=== PATIENT | male | born 1945 | race Caucasian/White ===

== ENCOUNTER 2019-07-16 09:42 | Day surgery (SDC) | payer MEDICARE ==
[~2019-07-16 09:42] MED LIST: ACETAMINOPHEN 325 MG TAB PO PRN; ACETAMINOPHEN 500 MG TABLET PO ONE; ACETAMINOPHEN W/ CODEINE 300MG/30MG TABLET PO PRN; ACETAMINOPHEN W/ CODEINE 300MG/60MG TABLET PO PRN; AL HYDROX/MAG HYDROX 30ML UD PO PRN; BISACODYL 10 MG SUPP RC PRN; CEFAZOLIN 2 Gram 2 GM/50 ML BAG IVPB ONE; CELECOXIB 100 MG CAPSULE PO ONE; DEXTROSE 5 % AND 0.9 % NACL 1,000 ML IV PRN; DIPHENHYDRAMINE HCL 25 MG CAPSULE PO PRN; FAMOTIDINE 20MG TABLET PO ONE; HYDROCODONE/APAP 5/325MG TABLET PO PRN; HYDROCODONE/APAP 7.5/325MG TABLET PO PRN; HYDROMORPHONE HCL 2 MG/ML VIAL IM PRN; KETOROLAC 30 MG/ML VIAL IVP PRN; MAGNESIUM HYDROXIDE 30 ML UDC PO PRN; METOCLOPRAMIDE 10 MG TABLET PO ONE; METOCLOPRAMIDE 10 MG TABLET PO PRN; NALOXONE 0.4 MG/1 ML VIAL IVP PRN; ONDANSETRON 4 MG ODT TABLET SL PRN; PROMETHAZINE HCL 25 MG TABLET PO PRN; SCOPOLAMINE 1 PATCH TDSY TD ONE; TRAMADOL HCL 50 MG TABLET PO PRN; VANCOMYCIN 1GM/200ML PREMIX 1 GM/200 ML PIGGYBACK IVPB ONE
[2019-07-16] MEDS ORDERED: LIDOCAINE 2% MDV (20MG/ML) 20ML VIAL IV ONE (09:43)
[2019-07-16] MEDS ORDERED: PROPOFOL 10 MG/ML VIAL IV ONE (09:43)
[2019-07-16] MEDS ORDERED: EPHEDRINE SULFATE 50 MG/ML ML IV ONE (09:43)
[2019-07-16] MEDS ORDERED: DEXAMETHASONE 4 MG/ML 1ML VIAL IVP ONE (09:43)
[2019-07-16] MEDS ORDERED: ROPIVACAINE HCL (NAROPIN) /PF 5MG/ML 20ML VIAL IV ONE (09:43)
[2019-07-16] MEDS ORDERED: MIDAZOLAM HCL 2MG/2ML VIAL IV ONE (09:43)
[2019-07-16] MEDS ORDERED: DOCUSATE SODIUM 100 MG CAPSULE PO SCH (10:00)
[2019-07-16] MEDS ORDERED: RINGERS SOLUTION,LACTATED 1,000 ML IV ONE ×2 (10:30→13:48)
[2019-07-16 10:44] LABS: ABO GROUP A; ANTIBODY SCREEN NEGATIVE (NEGATIVE); RH TYPE POSITIVE
[2019-07-16] MEDS ORDERED: BUPIVACAINE 0.5% W/EPI MPF 30 ML VIAL IU ONE (13:03)
[2019-07-16] MEDS ORDERED: TRANEXAMIC ACID 1,000 MG/10 ML ML IU ONE (13:04)
[2019-07-16] MEDS ORDERED: VANCOMYCIN HCL 1 GM VIAL IR ONE (13:04)
[2019-07-16] MEDS ORDERED: VANCOMYCIN HCL 1 GM VIAL IU ONE (13:04)
[2019-07-16] MEDS ORDERED: BUPIVACAINE LIPOSOME 266MG/20ML VIAL IU ONE (13:04)
[2019-07-16] MEDS ORDERED: TRANEXAMIC ACID 1,000 MG/10 ML ML IVPB ONE (13:04)
[2019-07-16] MEDS ORDERED: VANCOMYCIN 500MG/100ML PREMIX 500 MG/100 ML PIGGYBACK IVPB ONE (16:00)
--- NOTE | 2019-07-16 16:59 | Rehab Evaluation ---
Patient Information - Patient Information Diagnosis: L TKA Ordered Treatment: OT Evaluate and Treat Status: Initial Evaluation Surgery: Yes Date of Surgery: 07/16/19 Past Medical/Surgical Hx: PAST MEDICAL/SURGICAL HISTORY Past Surgical History HEART CATHS LAST ONE 07-05-19 DOUBLE HERNIA BILAT CATARACTS TONSILS LEFT SHOULDER SX CARDIAC STENT 2014 PMH - Respiratory Hx Respiratory Disorders Yes Hx Chronic Obstructive Yes: USES INHALER NEEDED NEW DX VERY RARE USE Pulmonary Disease (COPD) Hx Sleep Apnea Yes Hx of CPAP Yes: PT INSTRUCTED TO BRING TO THE HOSPITAL PMH - Cardiovascular Hx Cardiovascular Disorders Yes Hx Abnormal EKG Yes Hx Cardiac Catheterization Yes: 07-05-19 50-60 % OCCLUSION NO INTERVENTION AT THIS TIME Hx Chest Pain Yes: 07-05-19 HAD NEG CATH STRESS TEST ON CHART ? POSS GALLBLADDER Hx Hypertension Yes: CONTROLLED WITH MEDS Hx Coronary Artery Disease Yes Hx Coronary Stent Yes: X'S1 2014 Exercise Tolerance Fair PMH - Neuro Hx Neurological Disorders Yes Hx Dizziness Yes: OCCASS Hx Headaches Yes: OCCASS Hx Neuropathy Yes: FEET Comment: MILD MEMORY ISSUES ON MEDS. TREMORS NOTED HANDS PILL ROLLING? 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 He has a tub/shower combo with hand held shower head, and shower bench. There are no grab bars in shower. He has a raised toilet seat with grab bars and a 2WW. Daughter who is a medical asssistant will be staying with patient through Tuesday and then several other family members will be available after that time to assist with pt as needed.) Precautions: [place], Fall, Other (WBAT) - Time With Patient Total Time Spent With Patient (Min): 30 Treatment Procedures: Detail (OT eval low) Subjective Information - Subjective Information Per Patient Objective Data - Pain Pain Present: Yes Pain Intensity: 0 (L knee) Pain Scale Used: Numeric (1 - 10) - Mental Status Patient Orientation: Oriented x3 - Visual Perception Appears within normal limits for therapeutic activities - ROM Within normal limits (BUE's) - Strength/Tone Within normal limits (BUE's) - Coordination Appears within normal limits for therapeutic activities - Bed Mobility Independent - Transfers Independent (sit <> stand t/f) - Balance Balance Sitting: Good Balance Standing: Fair (using 2WW for support) - Gait Detail (refer to PT evaulation) - ADL's/IADL's Detail (Pt and pt's daughter educated on modified lower body drsg technique. They were also provided handout summarizing this technique as well as tips for moving around in the kitchen with a walker. Pt demonstrated understanding. Pt independent for shirt don, underpants and pant don, sock don, and shoe don with no issues and no increase in pain.) Therapy Assessment - Therapy Assessment Detail (Pt safe and independent with LB modified drsg techniques. He received handout reviewing information and will have assistance at home for the next several days if needed.) Patient Education - Patient Education Teaching Topic: Other (LB modified drsg technique) Response: Return Demonstration Teaching Method: Discussion Teaching Recipient: Patient, Family Barriers To Learning: None Prognosis - Prognosis Good Plan - Plan Occupational Therapy Plan: no further inpatient OT needed at this time.
--- NOTE | 2019-07-16 17:08 | Rehab Evaluation ---
Patient Information - Patient Information Diagnosis: L TKA Ordered Treatment: PT Evaluate and Treat Status: Initial Evaluation Surgery: Yes Date of Surgery: 07/16/19 Past Medical/Surgical Hx: PAST MEDICAL/SURGICAL HISTORY Past Surgical History HEART CATHS LAST ONE 07-05-19 DOUBLE HERNIA BILAT CATARACTS TONSILS LEFT SHOULDER SX CARDIAC STENT 2014 PMH - Respiratory Hx Respiratory Disorders Yes Hx Chronic Obstructive Yes: USES INHALER NEEDED NEW DX VERY RARE USE Pulmonary Disease (COPD) Hx Sleep Apnea Yes Hx of CPAP Yes: PT INSTRUCTED TO BRING TO THE HOSPITAL PMH - Cardiovascular Hx Cardiovascular Disorders Yes Hx Abnormal EKG Yes Hx Cardiac Catheterization Yes: 07-05-19 50-60 % OCCLUSION NO INTERVENTION AT THIS TIME Hx Chest Pain Yes: 07-05-19 HAD NEG CATH STRESS TEST ON CHART ? POSS GALLBLADDER Hx Hypertension Yes: CONTROLLED WITH MEDS Hx Coronary Artery Disease Yes Hx Coronary Stent Yes: X'S1 2014 Exercise Tolerance Fair PMH - Neuro Hx Neurological Disorders Yes Hx Dizziness Yes: OCCASS Hx Headaches Yes: OCCASS Hx Neuropathy Yes: FEET Comment: MILD MEMORY ISSUES ON MEDS. TREMORS NOTED HANDS PILL ROLLING? 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 He has a tub/shower combo with hand held shower head, and shower bench. There are no grab bars in shower. He has a raised toilet seat with grab bars and a 2WW. Daughter who is a medical asssistant will be staying with patient through Tuesday and then several other family members will be available after that time to assist with pt as needed.) Precautions: [place], Fall, Other (WBAT) - Time With Patient Total Time Spent With Patient (Min): 30 Treatment Procedures: Detail (Initial Evaluation) Subjective Information - Subjective Information Per Patient (The patient had no complaints of pain.) Objective Data - Mental Status Patient Orientation: Oriented x3 - Visual Perception Appears within normal limits for therapeutic activities - ROM Not within normal limits (L knee AROM was limited s/p. All other LE AROM was WNL.) - Strength/Tone Not within normal limits (The patient's LE strength was not test s/p surgery however was functional.) - Bed Mobility Independent (The patient was indpendent with supine to and from sit transfer.) - Transfers Independent (The patient was independent with sit to and from stand transfer.) - Balance Balance Sitting: Good Balance Standing: Good - Sensation Intact - Gait Detail (The patient ambulated with standard walker a distance of 120 feet x 1 WBAT on the L LE independently. The patient ambulated on 3 steps with use of folded walker and railing with supervision for safety using proper technique. The patient's daughter observed the pt. ambulating on levels and stairs.) Therapy Assessment - Therapy Assessment Detail (The patient was independent with bed mobility, transfer and ambulation. The patient has met all inpt. PT goals and is discharged from inpt. PT.) Patient Education - Patient Education Teaching Topic: Exercise/Activity (The patient completed TKA HEP which included seated heel slides, ankle pumps, supine heel slides, quad sets, hamstring sets, gluteal sets.) Response: Return Demonstration Teaching Method: Discussion, Demonstration, Handout Teaching Recipient: Patient Barriers To Learning: None Problem List - Problem List Physical Therapy Problem List: Detail (Decreased L knee AROM and L LE strength.) Goals - Goals Physical Therapy Goals: All inpt. PT goals have been met. Plan - Plan Physical Therapy Plan: The patient is discharged from inpt. PT and is to continue with Home PT. Occupational Therapy Plan: no further inpatient OT needed at this time.
--- NOTE | 2019-07-17 07:25 | Operative Note ---
DATE OF SURGERY: 07/16/2019 PREOPERATIVE DIAGNOSIS: END STAGE LEFT KNEE ARTHROSIS. POSTOPERATIVE DIAGNOSIS: END STAGE LEFT KNEE ARTHROSIS. OPERATION: LEFT TOTAL KNEE ARTHROPLASTY. SURGEON: Dale Gonzales M.D. ANESTHESIA: Spinal. ANESTHESIA PROVIDER: FRANKY Martinez CRNA COMPLICATION: None. BLOOD LOSS: Minimal. OPERATIVE FINDINGS: [id number] arthrosis femoral medial compartment. COMPONENTS PLACED: 2 gram Vancomycin cemented Claros and Nephew Journey II Oxinium total knee arthroplasty system size 8 femoral component, size 7 tibial baseplate, an 11 mm thick tibial poly insert, and 35 mm cemented patellar component. INDICATIONS FOR OPERATION: This is a 74-year-old male with persistent pain and dysfunction in his knee for several years. Failed nonoperative treatments and is scheduled for total knee arthroplasty. I explained all risks and benefits in detail for the diagnosis and procedure including, but not limited to infection, nerve injury, vessel injury, persistent pain, stiffness, numbness, and tingling in the knee, periprosthetic fracture, need for resection arthroplasty if components become infected or loose, nerve injury, vessel injury, blood clot, need for anticoagulation to prevent blood clots, and risks associated with the use of these medications. All of his questions were answered. Rehab course was outlined. He agreed to proceed. PROCEDURE: The patient was brought to the Operating Room, placed in the supine position and prepped for surgery. Spinal anesthesia was inducted. The left lower extremity and knee were prepped and draped in sterile fashion. The left knee was prepped again with ChloraPrep after it was draped. Intraoperative timeout was performed. Next we exsanguinated the leg with Esmarch, no tourniquet was used, we used Aquamantys cautery during the entire case. The skin and subcutaneous tissue was dissected down anteriorly and medial and lateral skin flaps were made and we incised the capsule medially along the medial border of the patella to the tibial tubercle. Incised the vastus medialis in line with its fibers using medial lateral approach. Everted patella partially and resected the retropatellar fat pad. Elevated the capsule subperiosteally and medially. We flexed the knee and had [id number] medial compartment arthrosis. Next drilled the intracondylar drill hole and inserted the intramedullary guide jamir, 6-degree cutting block, we aligned it off the distal femoral condyles and pinned it in the +2 mm position and cut the distal femoral condyles. Next we placed a sizing jig on the distal femoral condyle, we dialed in the sizing jig, we pinned it, and then sized it for a size 8. Three of the previously placed pin holes we now placed a 5-in-1 cutting jig, we dialed in the anterior cut so it would come out flush without notching, we cut that cut, and it was a good flush cut and we then cut the remainder of the chamfer cuts in the usual fashion. Next we placed a size 8 trial femoral component, centered it, pinned it, removed osteophytes off the periphery, inserted the resection collet, and reamed and box Osteomed the cruciate bone block. Attention was turned to the tibia, we exposed the tibia, we seated the spikes of external alignment jig in the tubercular groove off the centered tibial tubercle 2 fingerbreadths distally off the anterior tibial cortex of the distal tibia and remnants for a 7 mm cut off the higher lateral plateau, we then pinned that in place in the anterior post. Next we rechecked alignment of the cutting jig with a drop jamir, centered tibial anatomic axis and cross pinned and completed fixation and cut the tibia. Next we removed osteophytes off the posterior femoral condyle using a curved osteotome, check flexion/extension gaps, basically sized it up to an 11 mm thick poly insert, this allowed for 1-2 mm of varus/valgus laxity in flexion/extension. Overall alignment cuts in extension with alignment rods was centered on the hip joint and ankle joint. Next, we took the knee in flexion, we sized the tibial baseplate to be a size 7, replaced all trial components, set the rotation tibial baseplate again extension using the alignment jamir centered on hip joint and ankle joint. Marked pen hilario off the laser marked anterior tibial baseplate. Attention was turned to the patella, we measured the patella, we set the cutting jig to allow for a 9 mm thick poly insert, cut the patella, it was right on size and we verified it and then measured it to be 35 mm, we medialized it as much as possible, drilled 3 peg holes and then did trial range of motion. Mixed cement. The patella tracked nicely handsfree, full extension and flexion to 130-140 degrees. We took the knee in flexion, we sized the tibial baseplate off the previously placed hilario, pinned it in place, drilled out and keel punched the keel hole. Next we placed a bone plug in the femoral canal hole, placed a drill bit in the tibial hole and dried it using a CarboJet dryer, also cauterized the posterior capsule previously after resection and injected 0.5% Marcaine with Epinephrine, tranexamic acid and Exparel mixture with several sticks there. Next we impacted down the tibial component first, removing excess cement and then the femoral component removing excess cement. We placed a trial tibial poly liner, held the knee in extension, clamped down the patella component until cement hardened, and remove excess cement. When the cement hardened we took the knee in flexion, distracted the knee with the bone hook and sponge, irrigated copiously, it was cauterized again, bolused again. We then inserted the real tibial poly insert and verified it was interlocked mediolaterally, and found the range of motion to be the same. We irrigated it copiously, we used the rest of our joint mixture more superficially in the quadriceps vastus medialis capsule and tendons and then closed the capsule in flexion using running #2 Quill suture and close the skin securely with several interrupted buried 2-0 Vicryl suture. A sterile dressing was applied with Acticoat and KAYLA dressing. The patient tolerated the procedure well. No intraoperative complications. Sponge, needle and blade counts correct. Recovery Room stable. Neurovascular intact. Discharged as an outpatient today with home therapy nurse today. Follow-up in two weeks. JOB NUMBER: [id number] [facility]
== END 2019-07-16 18:38 | disposition home health service (06) ==
LOC: SUR 09:42 → MEDSURG 14:55 → SUR 18:38
PROVIDERS: ATTEND Orthopaedic Surgery
DX: M17.12 Unilateral primary osteoarthritis, left knee (principal); I10 Essential (primary) hypertension; E11.9 Type 2 diabetes mellitus without complications; E78.00 Pure hypercholesterolemia, unspecified; H40.9 Unspecified glaucoma; J44.9 Chronic obstructive pulmonary disease, unspecified; G62.9 Polyneuropathy, unspecified; Z95.5 Presence of coronary angioplasty implant and graft; Z79.4 Long term (current) use of insulin
CPT/HCPCS: 36416; 76942; 82948; 86850; 86900; 86901; C1776; J1885; J3370; J7120